=== PATIENT | male | born 1975 | race Caucasian/White ===

== ENCOUNTER 2021-01-23 20:44 | Emergency (ER) | payer OTHER ==
[~2021-01-23] VITALS: Ht 172.7 cm; Wt 79.6 kg
[2021-01-23] MEDS ORDERED: CEPH500C PO (21:27)
[2021-01-23] MEDS ORDERED: TRAM-48 PO (21:27)
[2021-01-23] MEDS ORDERED: traMADol 50 MG TABLET PO ONE (21:30)
[2021-01-23] MEDS ORDERED: KETOROLAC 60 MG/2 ML VIAL. IM ONE (21:30)
--- NOTE | 2021-01-23 21:43 | PHYS DOC ---
Past Medical History Past Surgical History: Other Additional Past Surgical Histo: L KNEE Smoking Status: Current Every Day Smoker Alcohol Use: None General Adult EDM: Chief Complaint: LOWER EXTREMITY SWELLING HPI: HPI: Patient is a 45 year old male presents for evaluation of injury to right lower anterior felix. patient hit right anterior felix on a skid steer. On exam 6 cm abrasion with scabbing and surrounding swelling and erythema. No active bleeding or draining wound. Review of Systems: Review of Systems: Constitutional: Denies fever or chills. [] Eyes: Denies change in visual acuity. [] HENT: Denies nasal congestion or sore throat. [] Respiratory: Denies cough or shortness of breath. [] Cardiovascular: Denies chest pain or edema. [] GI: Denies abdominal pain, nausea, vomiting, bloody stools or diarrhea. [] : Denies dysuria. [] Musculoskeletal: Denies back pain or joint pain. [] Integument: Denies rash. [positive abrasion swelling around with erythema] Neurologic: Denies headache, focal weakness or sensory changes. [] Endocrine: Denies polyuria or polydipsia. [] Lymphatic: Denies swollen glands. [] Psychiatric: Denies depression or anxiety. [] Heart Score: C/O Chest Pain: N/A Risk Factors: Risk Factors: DM, Current or recent (<one month) smoker, HTN, HLP, family history of CAD, obesity. Risk Scores: Score 0 - 3: 2.5% MACE over next 6 weeks - Discharge Home Score 4 - 6: 20.3% MACE over next 6 weeks - Admit for Clinical Observation Score 7 - 10: 72.7% MACE over next 6 weeks - Early Invasive Strategies Current Medications: Current Medications Medications (Trade) Dose Ordered Sig/Ann Marie Start Time Stop Time Status Last Admin Dose Admin Ketorolac Tromethamine (Toradol Im) 60 mg 1X ONCE 01/23/21 21:30 01/23/21 21:31 DC 01/23/21 21:34 60 MG Tramadol HCl (Ultram) 50 mg 1X ONCE 01/23/21 21:30 01/23/21 21:31 DC 01/23/21 21:33 50 MG Allergies: Allergies: Allergies Coded Allergies Type Severity Reaction Last Updated Verified No Known Drug Allergies 01/23/21 No Physical Exam: PE: Constitutional: Well developed, well nourished, no acute distress, non-toxic appearance. [] HENT: Normocephalic, atraumatic, bilateral external ears normal, oropharynx moist, no oral exudates, nose normal. [] Eyes: PERRLA, EOMI, conjunctiva normal, no discharge. [] Neck: Normal range of motion, no tenderness, supple, no stridor. [] Cardiovascular:Heart rate regular rhythm, no murmur [] Lungs & Thorax: Bilateral breath sounds clear to auscultation [] Abdomen: Bowel sounds normal, soft, no tenderness, no masses, no pulsatile masses. [] Skin: Warm, dry, no erythema, no rash. [] Back: No tenderness, no CVA tenderness. [] Extremities: No tenderness, no cyanosis, no clubbing, ROM intact, no edema. [] Neurologic: Alert and oriented X 3, normal motor function, normal sensory function, no focal deficits noted. [] Psychologic: Affect normal, judgement normal, mood normal. [] Current Patient Data: Vital Signs: Vital Signs Date Time Temp Pulse Resp B/P (MAP) Pulse Ox O2 Delivery O2 Flow Rate FiO2 01/23/21 21:33 97 Room Air 01/23/21 21:22 97.8 89 16 149/87 (107) 97.8 EKG: EKG: [] Radiology/Procedures: Radiology/Procedures: [] Impression: tib fib xray wet read negative Course & Med Decision Making: Course & Med Decision Making Pertinent Labs and Imaging studies reviewed. (See chart for details) [] Dragon Disclaimer: Atiya Disclaimer: This electronic medical record was generated, in whole or in part, using a voice recognition dictation system. Departure Departure Impression: Primary Impression: Leg abrasion, infected Disposition: HOME / SELF CARE / HOMELESS Patient Instructions: Abrasions, Contusion Scripts Cephalexin (KEFLEX) 500 Mg Capsule 1 CAP PO QID, #40 CAP Prov: ALEX KOWALSKI I DO 01/23/21 Tramadol Hcl (ULTRAM) 50 Mg Tablet 1 TAB PO PRN Q6HRS PRN for pain MDD 4 Tablet(s) for 7 Days, #28 TAB 0 Refills Prov: ALEX KOWALSKI DO 01/23/21 ALEX KOWALSKI I DO Jan 23, 2021 21:43
[2021-01-23 22:17] VITALS: BP 133/75
--- NOTE | 2021-01-23 22:17 | RAD ---
Exam: Right tib-fib 2 views INDICATION: Contusion cellulitis TECHNIQUE: Frontal and lateral views of the right tibia and fibula Comparisons: None FINDINGS: Bone mineralization is normal. No acute or healed fractures. Soft tissues are unremarkable. Joint spa eufemia are well-maintained. IMPRESSION: No acute osseous abnormality Electronically signed by: Erica Carpio MD (01/23/2021 10:14 PM) JAIME
== END 2021-01-23 22:37 | disposition left against medical advice (07) ==
LOC: ER 20:44
DX: S89.91XD Unspecified injury of right lower leg, subsequent encounter (principal); F17.200 Nicotine dependence, unspecified, uncomplicated; X58.XXXA Exposure to other specified factors, initial encounter; Y93.89 Activity, other specified; Y92.89 Other specified places as the place of occurrence of the external cause; Y99.8 Other external cause status
CPT/HCPCS: 73590; 96372; 99283; J1885